=== PATIENT | female | born 1995 | race Caucasian/White ===

== ENCOUNTER 2017-06-08 11:01 | Emergency (ER) | payer BC ==
[~2017-06-08] VITALS: Ht 154.9 cm; Wt 77.1 kg
[~2017-06-08 11:01] MED LIST: ACYCLOVIR 400400 MG PO; AURALGAN EAR DR14 ML OT; AZITHROMYCIN 2250 MG PO; CEFDINIR300 MG PO; CLONAZEPAM 0.50.5 M1 PO; COLACE100 MG PO; CONCERTA54 MG PO; HYDROXYZINE HCL25 M1; LAMICTAL100 MG; LATUDA40 MG; NEXPLANON68 MG PO; NORCO 5-325 TA1 EAC1 PO; PEPCID20 MG PO; PERCOCET 5-3251 EACH PO; PREDNISONE 20 M20 M1 PO; PROAIR HFA8.5 GM INH; SENNA PO; TOPAMAX 25 MG T25 M1 PO
[2017-06-08] MEDS ORDERED: FLAGYL500 MG PO (12:09)
[2017-06-08] MEDS ORDERED: VALTREX1000 MG PO (12:10)
[2017-06-08 12:24] LABS: URINE BILIRUBIN NEGATIVE (Negative); URINE BLOOD NEGATIVE (Negative); URINE CLARITY CLEAR; URINE COLOR YELLOW; URINE GLUCOSE-RANDOM NEGATIVE (Negative); URINE KETONES NEGATIVE (Negative); URINE LEUKOCYTES NEGATIVE (Negative); URINE NITRITE NEGATIVE (Negative); URINE PROTEIN NEGATIVE (Negative); URINE UROBILINOGEN 0.2 E.U./dl (0.2-1.0)
[2017-06-08 12:41] VITALS: BP 139/82
== END 2017-06-08 12:43 | disposition home or self-care (01) ==
LOC: M.ERS 11:01
PROVIDERS: Physician Assistant
DX: N76.0 Acute vaginitis (principal); F90.9 Attention-deficit hyperactivity disorder, unspecified type; F41.9 Anxiety disorder, unspecified; F17.210 Nicotine dependence, cigarettes, uncomplicated; F31.9 Bipolar disorder, unspecified; Z88.0 Allergy status to penicillin

== ENCOUNTER 2017-06-25 12:51 | Emergency (ER) | payer BC ==
[~2017-06-25] VITALS: Ht 154.9 cm; Wt 78.0 kg
[~2017-06-25 12:51] MED LIST changes: +FLAGYL500 MG PO; +VALTREX1000 MG PO
[2017-06-25] MEDS ORDERED: NEURONTIN 300300 M1 PO (12:56)
[2017-06-25 13:14] VITALS: BP 134/85
== END 2017-06-25 13:15 | disposition home or self-care (01) ==
LOC: M.ERS 12:51
DX: F41.0 Panic disorder [episodic paroxysmal anxiety] (principal); F90.9 Attention-deficit hyperactivity disorder, unspecified type; F32.9 Major depressive disorder, single episode, unspecified; F17.210 Nicotine dependence, cigarettes, uncomplicated; Z88.0 Allergy status to penicillin

== ENCOUNTER 2017-08-30 16:38 | Emergency (ER) | payer BC ==
[~2017-08-30] VITALS: Ht 154.9 cm; Wt 77.1 kg
[~2017-08-30 16:38] MED LIST changes: +NEURONTIN 300300 M1 PO
[2017-08-30 16:56] LABS: URINE BILIRUBIN NEGATIVE (Negative); URINE BLOOD 2+ (Negative); URINE CLARITY CLEAR; URINE COLOR YELLOW; URINE GLUCOSE-RANDOM NEGATIVE (Negative); URINE KETONES 1+ (Negative); URINE NITRITE-REFLEX NEGATIVE (Negative); URINE PROTEIN 1+ (Negative); URINE SPECIFIC GRAVITY >= 1.030 (1.005-1.030); URINE UROBILINOGEN 0.2 E.U./dl (0.2-1.0)
[2017-08-30 16:57] LABS: URINE LEUKOCYTES-REFLEX 2+ (Negative)
[2017-08-30 17:06] LABS: SQUAMOUS 4-10 Moderate /LPF (0-3)
[2017-08-30 17:07] LABS: URINE RBC >20 Many /HPF (0-2); URINE WBC-REFLEX 0-5 Rare /HPF (0-5)
[2017-08-30 17:08] LABS: BACTERIA-REFLEX 1-9 Few /HPF (None Seen); CASTS None Seen /LPF (None Seen); CRYSTALS None Seen /LPF (None Seen)
[2017-08-30] MEDS ORDERED: BACTRIM DS TAB1 EACH PO (17:23)
[2017-08-30] MEDS ORDERED: ACYCLOVIR 400400 MG PO (17:23)
[2017-08-30 17:30] VITALS: BP 120/83
== END 2017-08-30 17:31 | disposition home or self-care (01) ==
LOC: M.ERS 16:38
PROVIDERS: Nurse Practitioner Family
DX: N39.0 Urinary tract infection, site not specified (principal); A60.09 Herpesviral infection of other urogenital tract; F90.9 Attention-deficit hyperactivity disorder, unspecified type; F31.9 Bipolar disorder, unspecified; F17.210 Nicotine dependence, cigarettes, uncomplicated; Z88.0 Allergy status to penicillin

== ENCOUNTER 2019-06-30 16:40 | Emergency (ER) | payer BC ==
[~2019-06-30] VITALS: Ht 154.9 cm; Wt 74.8 kg
[~2019-06-30 16:40] MED LIST changes: +BACTRIM DS TAB1 EACH PO
[2019-06-30 17:55] VITALS: BP 129/82
== END 2019-06-30 17:56 | disposition still patient (30) ==
LOC: M.ERS 16:40
DX: Z53.21 Procedure and treatment not carried out due to patient leaving prior to being seen by health care provider (principal)

== ENCOUNTER 2019-07-27 12:19 | Emergency (ER) | payer BC ==
[~2019-07-27] VITALS: Ht 154.9 cm; Wt 72.6 kg
[2019-07-27] MEDS ORDERED: ENBRACE HR SOF1 EACH PO (12:31)
[2019-07-27] MEDS ORDERED: PHENERGAN 25 MG25 M1 PO (12:32)
[2019-07-27 12:51] LABS: ABSOLUTE BASOPHILS 0.1 thou/uL (0.0-0.2); ABSOLUTE EOSINOPHILS 0.2 thou/uL (0.0-0.7); ABSOLUTE LYMPHOCYTES 2.7 thou/uL (0.8-5.3); ABSOLUTE MONOCYTES 0.8 thou/uL (0.0-1.2); ABSOLUTE NEUTROPHILS 10.7 thou/uL (1.6-8.1); BASOPHILS 0.7 %; EOSINOPHILS 1.4 %; HEMATOCRIT 43.2 % (37.0-47.0); HEMOGLOBIN 14.9 gm/dL (12.0-15.0); LYMPHOCYTES 18.9 %; MCH 30.7 pg (26.0-34.0); MCHC 34.4 g/dL (28.0-37.0); MCV 89.2 fL (80.0-100.0); MONOCYTES 5.6 %; MPV 8.9 fl. (7.2-11.1); NUCLEATED RBCS 0 /100WBC; PLATELET COUNT* 289 thou/uL (150-400); POLYS 73.4 %; RBC 4.85 mil/uL (4.20-5.00); RDW-CV 13.1 % (10.5-14.5); WBC 14.5 thou/uL (4.0-11.0)
[2019-07-27 12:52] LABS: URINE BILIRUBIN NEGATIVE (Negative); URINE BLOOD NEGATIVE (Negative); URINE CLARITY CLEAR; URINE COLOR YELLOW; URINE GLUCOSE-RANDOM NEGATIVE (Negative); URINE KETONES 1+ (Negative); URINE LEUKOCYTES-REFLEX TRACE (Negative); URINE NITRITE-REFLEX NEGATIVE (Negative); URINE PROTEIN TRACE (Negative); URINE SPECIFIC GRAVITY 1.025 (1.005-1.030); URINE UROBILINOGEN 0.2 E.U./dl (0.2-1.0)
[2019-07-27 12:58] LABS: CALCIUM 9.9 mg/dL (8.5-10.1); CREATININE 0.8 mg/dL (0.6-1.3); POTASSIUM 3.7 mmol/L (3.5-5.1)
[2019-07-27 13:03] LABS: ALBUMIN 4.8 g/dL (3.4-5.0); TOTAL BILIRUBIN 0.5 mg/dL (<0.1-1.0); TOTAL PROTEIN 8.7 g/dL (6.4-8.2)
[2019-07-27 13:03] LABS: CASTS None Seen /LPF (None Seen); CRYSTALS None Seen /LPF (None Seen); MUCUS >6 Heavy strn/LPF (None Seen); SQUAMOUS 4-10 Moderate /LPF (0-3); URINE RBC 0-2 Rare /HPF (0-2); URINE WBC-REFLEX 6-15 Few /HPF (0-5)
[2019-07-27] MEDS ORDERED: KEFLEX500 M1 PO (15:13)
[2019-07-27 15:30] VITALS: BP 128/85
== END 2019-07-27 15:30 | disposition home or self-care (01) ==
LOC: M.ERS 12:19
PROVIDERS: Physician Assistant
DX: O23.41 Unspecified infection of urinary tract in pregnancy, first trimester (principal); O99.341 Other mental disorders complicating pregnancy, first trimester; O99.331 Smoking (tobacco) complicating pregnancy, first trimester; Z3A.08 8 weeks gestation of pregnancy; Z88.0 Allergy status to penicillin

== ENCOUNTER 2019-09-15 17:00 | Emergency (ER) | payer BC ==
[~2019-09-15] VITALS: Ht 154.9 cm; Wt 79.4 kg
[~2019-09-15 17:00] MED LIST changes: +ENBRACE HR SOF1 EACH PO; +KEFLEX500 M1 PO; +PHENERGAN 25 MG25 M1 PO
[2019-09-15] MEDS ORDERED: HYDROXYZINE HCL25 M2 PO (17:14)
[2019-09-15 17:49] LABS: URINE BILIRUBIN NEGATIVE (Negative); URINE BLOOD NEGATIVE (Negative); URINE CLARITY CLEAR; URINE COLOR YELLOW; URINE GLUCOSE-RANDOM NEGATIVE (Negative); URINE KETONES TRACE (Negative); URINE LEUKOCYTES-REFLEX 1+ (Negative); URINE NITRITE-REFLEX NEGATIVE (Negative); URINE PROTEIN NEGATIVE (Negative); URINE SPECIFIC GRAVITY >= 1.030 (1.005-1.030); URINE UROBILINOGEN 0.2 E.U./dl (0.2-1.0)
[2019-09-15 18:19] LABS: BACTERIA-REFLEX >30 Many /HPF (None Seen); MUCUS >6 Heavy strn/LPF (None Seen); SQUAMOUS >10 Many /LPF (0-3); URINE RBC 0-2 Rare /HPF (0-2); URINE WBC-REFLEX >25 Many /HPF (0-5)
[2019-09-15 18:20] LABS: CASTS None Seen /LPF (None Seen); CRYSTALS None Seen /LPF (None Seen)
[2019-09-15 18:25] LABS: ABSOLUTE BASOPHILS 0.1 thou/uL (0.0-0.2); ABSOLUTE EOSINOPHILS 0.2 thou/uL (0.0-0.7); ABSOLUTE LYMPHOCYTES 2.9 thou/uL (0.8-5.3); ABSOLUTE MONOCYTES 0.7 thou/uL (0.0-1.2); ABSOLUTE NEUTROPHILS 8.8 thou/uL (1.6-8.1); BASOPHILS 1.1 %; EOSINOPHILS 1.6 %; HEMATOCRIT 36.3 % (37.0-47.0); HEMOGLOBIN 12.5 gm/dL (12.0-15.0); LYMPHOCYTES 22.9 %; MCH 31.5 pg (26.0-34.0); MCHC 34.5 g/dL (28.0-37.0); MCV 91.1 fL (80.0-100.0); MONOCYTES 5.5 %; MPV 8.7 fl. (7.2-11.1); NUCLEATED RBCS 0 /100WBC; PLATELET COUNT* 243 thou/uL (150-400); POLYS 68.9 %; RBC 3.98 mil/uL (4.20-5.00); RDW-CV 15.1 % (10.5-14.5); WBC 12.8 thou/uL (4.0-11.0)
[2019-09-15 18:33] LABS: CALCIUM 9.1 mg/dL (8.5-10.1); CREATININE 0.6 mg/dL (0.6-1.3); POTASSIUM 3.9 mmol/L (3.5-5.1)
[2019-09-15 18:37] LABS: ALBUMIN 3.7 g/dL (3.4-5.0); TOTAL BILIRUBIN 0.2 mg/dL (<0.1-1.0); TOTAL PROTEIN 7.3 g/dL (6.4-8.2)
[2019-09-15] MEDS ORDERED: MACROBID 100 M100 M2 PO (19:19)
[2019-09-15] MEDS ORDERED: TRINATE TABLET1 EACH PO (19:19)
[2019-09-15] MEDS ORDERED: BENTYL 20 MG TA20 M1 PO (19:33)
[2019-09-15 19:45] VITALS: BP 118/76
== END 2019-09-15 19:45 | disposition home or self-care (01) ==
LOC: M.ERS 17:00
PROVIDERS: Nurse Practitioner Family
DX: O46.92 Antepartum hemorrhage, unspecified, second trimester (principal); F32.9 Major depressive disorder, single episode, unspecified; F41.9 Anxiety disorder, unspecified; F90.9 Attention-deficit hyperactivity disorder, unspecified type; O23.42 Unspecified infection of urinary tract in pregnancy, second trimester; F17.210 Nicotine dependence, cigarettes, uncomplicated; Z3A.16 16 weeks gestation of pregnancy; Z88.0 Allergy status to penicillin